=== PATIENT | male | born 1960 | race African-American/Black ===

== ENCOUNTER 2022-11-17 15:54 | Emergency (ER) | payer MEDICAID ==
[~2022-11-17] VITALS: Ht 188 cm; Wt 81.6 kg
[2022-11-17 16:01] VITALS: BP 118/64
[2022-11-17] MEDS ORDERED: VISCOUS LIDOCAINE 2% 15 ML UDC PO STA (16:11)
[2022-11-17] MEDS ORDERED: MAGNESIUM/ALUMINUM HYDROXIDE/SIMETHICONE 30ML UDC PO STA (16:11)
[2022-11-17] MEDS ORDERED: FAMOTIDINE 20MG TABLET PO ONE (16:15)
[2022-11-17 16:39] LABS: BASOPHILS % 0.5 % (0.0-2.0); EOSINOPHILS % 0.9 % (0.0-5.0); HEMATOCRIT. 42.8 % (42.0-52.0); HEMOGLOBIN. 13.9 g/dL (14.0-18.0); LYMPHOCYTES % 19.1 % (20.0-50.0); MEAN CORPUSCULAR HEMOGLOBIN 30.4 pg (28.0-32.0); MEAN CORPUSCULAR VOLUME 93.6 fL (80.0-94.0); MEAN PLATELET VOLUME 7.6 fl (7.4-10.4); MONOCYTES % 12.2 % (2.0-8.0); NEUTROPHILS % 67.3 % (40.0-76.0); PLATELET 291 x1000/uL (130-400); RED BLOOD CELL COUNT 4.58 mill/uL (4.7-6.1); RED CELL DISTRIBUTION WIDTH 14.3 % (11.6-14.6)
[2022-11-17 16:55] LABS: CHLORIDE 112 mEq/L (98-107)
[2022-11-17] MEDS ORDERED: MAG-55 MT (21:17)
[2022-11-17] MEDS ORDERED: FAMO-135 MT (21:17)
== END 2022-11-17 21:33 | disposition home or self-care (01) ==
LOC: ER 16:03
DX: R10.9 Unspecified abdominal pain (principal); Z88.0 Allergy status to penicillin; J44.9 Chronic obstructive pulmonary disease, unspecified
CPT/HCPCS: 36415; 71045; 74176; 80053; 83690; 84484; 85025; 93005; 99285; Z7610

== ENCOUNTER 2025-06-27 16:14 | Emergency (ER) | payer OTHER, MEDICAID ==
[~2025-06-27] VITALS: Ht 170.2 cm; Wt 68.0 kg
[~2025-06-27 16:14] MED LIST: FAMO-135 MT; MAG-55 MT
[2025-06-27 16:20] VITALS: BP 104/80; PULSE 74; RESP 16; TEMP 36.7; O2SAT 98
[2025-06-27] MEDS ORDERED: ALBU90AE INH (17:43)
== END 2025-06-27 17:59 | disposition home or self-care (01) ==
LOC: ER 16:14
DX: J44.9 Chronic obstructive pulmonary disease, unspecified (principal); Z88.0 Allergy status to penicillin; Z79.899 Other long term (current) drug therapy
CPT/HCPCS: 99283